=== PATIENT | male | born 1990 | race Caucasian/White ===

== ENCOUNTER 2017-06-24 12:23 | Emergency (ER) | payer OTHER ==
--- NOTE | 2017-06-24 13:29 | CPEKG ---
Heart Rate: 79 RR Interval: 759 P-R Interval: 152 QRSD Interval: 100 QT Interval: 376 QTC Interval: 432 P [place]: 66 QRS [place]: -84 T Wave [place]: 15 EKG Severity - OTHERWISE NORMAL ECG - EKG Impression: SINUS RHYTHM EKG Impression: LEFT AXIS DEVIATION Electronically Signed By: Tera Ponce 24-Jun-2017 15:56:21
--- NOTE | 2017-06-24 14:19 | EDPHY ---
H & P Time Seen by Provider: 06/24/17 13:37 HPI/ROS: Chief complaint. Chest and abdominal pain HPI. [age]-year-old male presents with 2 week history of chest discomfort that comes and goes. Sometimes some the left sometimes on the right. He can affected by change of position. Some headache. Slight shortness of breath at night. No fever cough. His chest discomfort when he has it is described as pressure. It is not worse with deep breathing or exertion. He also has had occasional abdominal pain in various parts of his abdomen. Slight diarrhea. No vomiting. No fever. No similar symptoms previously ROS Constitutional. no fever/chills, no weakness Eyes. no problems with vision ENT. no sore throat, no nasal drainage Cardiovascular. Chest pain Respiratory. Occasional shortness of breath Abdominal. Occasional abdominal pain . no problems urinating MS. no calf pain/swelling, no neck/back pain, no joint pain Skin. no rash Lymph. no swollen glands Neuro. Headache Past Medical/Surgical History: Healthy Social History: Single, nonsmoker, no alcohol Smoking Status: Never smoked Physical Exam: General Appearance: Alert well-developed male mild distress vital signs are stable Eyes: Pupils equal and round no pallor or injection. ENT, Mouth: Mucous membranes are moist. Respiratory: There are no retractions, lungs are clear to auscultation. Cardiovascular: Regular rate and rhythm. Gastrointestinal: Abdomen is soft and nontender, no masses, bowel sounds normal. Neurological: Awake and alert, sensory and motor exams grossly normal. Skin: Warm and dry, no rashes. Musculoskeletal: Neck is supple nontender. Extremities symmetrical, full range of motion. Psychiatric: Patient is oriented X 3, there is no agitation. Constitutional: Initial Vital Signs Temperature (C) 36.9 C 06/24/17 12:44 Heart Rate 82 06/24/17 12:44 Respiratory Rate 16 06/24/17 12:44 Blood Pressure 150/94 H 06/24/17 12:44 O2 Sat (%) 97 06/24/17 12:44 O2 Delivery Mode Room Air Allergies/Adverse Reactions: No Known Allergies Allergy (Unverified 06/24/17 12:43) Home Medications: Medication Instructions Recorded Mometasone Furoate 06/24/17 Medical Decision Making - Diagnostics EKG Interpretation: EKG interpreted by me shows normal sinus rhythm with normal interval and axis. QRS is normal. No significant ST elevation or depression. No arrhythmia. The rate is 79 Imaging Results: Imaging Impressions Chest X-Ray 06/24/17 12:57 Impression: Negative for acute cardiopulmonary abnormality.. Chest x-ray interpreted by me is normal Procedures: IV normal saline ED Course/Re-evaluation: Re-evaluation 3:30 p.m.. Patient is stable. He and I discussed imaging, EKG, lab results. We discussed treatment plan including criteria for return importance of follow-up and further evaluation. He expresses understanding and agreement Differential Diagnosis: I considered pneumonia, pneumothorax acute coronary syndrome, pulmonary embolus , infection - Data Points Laboratory Results: Laboratory Results 06/24/17 14:43 06/24/17 14:43 06/24/17 06/24/17 06/24/17 14:43 14:43 14:43 WBC 8.00 10^3/uL 10^3/uL (3.80-9.50) RBC 5.12 10^6/uL 10^6/uL (4.40-6.38) Hgb 15.2 g/dL g/dL (13.7-17.5) Hct 42.7 % % (40.0-51.0) MCV 83.4 fL fL (81.5-99.8) MCH 29.7 pg pg (27.9-34.1) MCHC 35.6 g/dL g/dL (32.4-36.7) RDW 11.2 % L % (11.5-15.2) Plt Count 322 10^3/uL 10^3/uL (150-400) MPV 9.1 fL fL (8.7-11.7) Neut % (Auto) 69.0 % % (39.3-74.2) Lymph % (Auto) 21.5 % % (15.0-45.0) [place] % (Auto) 8.3 % % (4.5-13.0) Eos % (Auto) 0.4 % L % (0.6-7.6) Baso % (Auto) 0.4 % % (0.3-1.7) Nucleat RBC Rel Count 0.0 % % (0.0-0.2) Absolute Neuts (auto) 5.53 10^3/uL 10^3/uL (1.70-6.50) Absolute Lymphs (auto) 1.72 10^3/uL 10^3/uL (1.00-3.00) Absolute Monos (auto) 0.66 10^3/uL 10^3/uL (0.30-0.80) Absolute Eos (auto) 0.03 10^3/uL 10^3/uL (0.03-0.40) Absolute Basos (auto) 0.03 10^3/uL 10^3/uL (0.02-0.10) Absolute Nucleated RBC 0.00 10^3/uL 10^3/uL (0-0.01) Immature Gran % 0.4 % % (0.0-1.1) Immature Gran # 0.03 10^3/uL 10^3/uL (0.00-0.10) D-Dimer < 0.27 ug/mLFEU ug/mLFEU (0.00-0.50) Sodium 144 mEq/L mEq/L (135-145) Potassium 4.1 mEq/L mEq/L (3.3-5.0) Chloride 106 mEq/L mEq/L (97-110) Carbon Dioxide 25 mEq/l mEq/l (22-31) Anion Gap 13 mEq/L mEq/L (8-16) BUN 10 mg/dL mg/dL (7-23) Creatinine 0.9 mg/dL mg/dL (0.7-1.3) Estimated GFR > 60 Glucose 85 mg/dL mg/dL (70-100) Calcium 9.2 mg/dL mg/dL (8.5-10.4) Troponin I < 0.012 ng/mL ng/mL (0.000-0.034) Medications Given: Discontinued Medications Sodium Chloride (Ns) 1,000 mls @ 0 mls/hr IV EDNOW ONE; Wide Open PRN Reason: Protocol Stop: 06/24/17 14:38 Last Admin: 06/24/17 14:51 Dose: 1,000 mls Departure - Departure Disposition: Home, Routine, Self-Care Clinical Impression: Chest pain Qualifiers: Chest pain type: other chest pain Qualified Code(s): R07.89 - Other chest pain ; R07.8 - Other chest pain Condition: Good Instructions: Chest Pain (ED) Additional Instructions: Regular meals and regular sleep. Drink plenty of fluids and stay hydrated. Ibuprofen to help with achiness. Return for fever, worsening chest discomfort, trouble breathing. Recheck in 2-3 days if not improving Referrals: NONE *PRIMARY CARE P,. [Primary Care Provider] - As per Instructions
[2017-06-24] MEDS ORDERED: NS 1,000 ML IV ONE (14:37)
[2017-06-24 14:47] VITALS: BP 142/82
[2017-06-24 14:59] LABS: PLATELET COUNT 322 10^3/uL (150-400)
== END 2017-06-24 15:49 | disposition home or self-care (01) ==
DX: R07.89 Other chest pain (principal); E86.9 Volume depletion, unspecified